=== PATIENT | male | born 1955 | race Caucasian/White ===

== ENCOUNTER 2017-10-10 06:53 | Day surgery (SDC) | payer OTHER ==
[~2017-10-10] VITALS: Ht 177.8 cm; Wt 77.9 kg
[2017-10-10] MEDS ORDERED: norco (07:33)
[2017-10-10] MEDS ORDERED: simvastatin (07:33)
[2017-10-10] MEDS ORDERED: soma (07:33)
[2017-10-10 07:35] VITALS: Ht 177.8 cm; Wt 77.9 kg
[2017-10-10 08:00] VITALS: BP 139/82; PULSE 62; RESP 18
[2017-10-10] MEDS ORDERED: MIDAZOLAM 1 MG/ML 2 ML INJ ONE ×3 (09:15)
[2017-10-10] MEDS ORDERED: FENTAnyl 50 MCG/ML VIAL ONE (09:15)
[2017-10-10 09:32] VITALS: BP 141/71; PULSE 62; RESP 20
--- NOTE | 2017-10-10 10:20 | OPPN ---
Date/Time of Note Date/Time of Note DATE: 10/10/17 TIME: 10:18 Proc Note GI Procedure Date 10/10/17 Indication: screening/surveillance Pre-procedure Diagnosis Screening colonoscopy Post-procedure Diagnosis Polypectomy done as described Procedure Performed: Colonoscopy Surgeon see signature line Foot Cutter none Anesthesia Type: moderate sedation Tourniquet Time none EBL none Transfusion required none Biopsy 1: None Polyp 1: Polyps sent for analysis as described Grafts/Implants none Tubes/Drains none Complication(s) none Procedure Description Procedure Date 10/10/17 Indication: screening/surveillance Pre-procedure Diagnosis Screening for colon cancer Post-procedure Diagnosis 2 polyps in the ascending colon. 1.4 cm polyp successfully removed by cold snare technique piecemeal polypectomy done polyp was flat. Goes on of the flat polyp in the same neighborhood successfully removed by jumbo biopsy forceps Moderate degree of diverticulosis both left and right side of the colon some of them largemouth Large 2-1/2 cm polyp in the rectum seen on the retroversion successfully removed by hot snare technique and the base was endoclipped Procedure Performed: Colonoscopy Surgeon see signature line Foot Cutter none Anesthesia Type: MAC Tourniquet Time none EBL none Transfusion required none Biopsy 1: None Polyp 1: Ascending colon cold snare Polyp 2: Ascending colon jumbo biopsy Polyp 3: Rectum hot snare Grafts/Implants none Tubes/Drains none Complication(s) none Disposition: PACU Procedure Description See dictated report HUBERT DUFFY MD Oct 10, 2017 10:20
--- NOTE | 2017-10-10 12:00 | GILP ---
DATE OF PROCEDURE: 10/10/2017 PROCEDURE: Colonoscopy with polypectomy and biopsy. INDICATION: A 62-year-old male undergoing this procedure for screening colonoscopy. The risk of th e procedure, related and unrelated complications, sedative risks, alternatives discussed and informe d consent was obtained. DESCRIPTION OF PROCEDURE: The patient was brought to the GI lab, sedated with Versed in incremental doses of 5 mg and fentanyl 100 mL. After optimal sedation a digital examination was done which was normal. Scope was passed with much ease into the rectum, advanced slowly all the way into the cecu m. Appendiceal orifice and IC valve identified. There was some stool in the cecum. There were 2 p olyps identified in the ascending colon. One was flat, 1.4 cm in diameter, successfully removed by cold snare technique piecemeal polypectomy was done, no tissue was left behind. There was another f lat polyp exactly opposite to this one, which was successfully removed by jumbo biopsy forceps. Jones t polyp was small 6 mm in diameter. The rest of the colon appeared normal except for multiple diver ticula at both left and right side of the colon, some of them were large mouth. The patient also romero d, on retroversion, a large polyp seen in the rectum. That polyp was successfully removed by hot sn are technique. The base was a bit white, though no muscularis propria was visible. As a preventive measure deployed endoclip ____ gently and closed the gap. The patient tolerated the procedure very well. IMPRESSION: 1. Large polyp 2.5 cm in diameter in the rectum, cauliflower in appearance with a pseudopedicle, bose ccessfully removed by hot snare technique and endoclip deployed. 2. Multiple diverticula, some of them large mouth both left and right side of the colon. 3. Two polyps in the ascending colon successfully removed, one by cold snare technique piecemeal po lypectomy done and the other with the jumbo biopsy forceps. PLAN: 1. Review the histopathology of the polyp. 2. The patient definitely needs a colonoscopy in 1 or 2 years unless the polyp histopathology warra nts further intervention. 3. High fiber diet. 4. Avoid red meat. The patient is to come to the office in 2 weeks. He was told about it. The patient was fully awake and we have given him the instruction in writing. Dictated By: HUBERT GUIDRY/WENDY Conf#: [id number] DID#: [id number] CC: YAN KEENAN MD;*[facility]*
== END 2017-10-10 11:14 | disposition home or self-care (01) ==
LOC: GIL 06:53
PROVIDERS: ATTEND Internal Medicine Gastroenterology
DX: Z12.11 Encounter for screening for malignant neoplasm of colon (principal); D12.4 Benign neoplasm of descending colon; D12.7 Benign neoplasm of rectosigmoid junction; K57.90 Diverticulosis of intestine, part unspecified, without perforation or abscess without bleeding; Z87.891 Personal history of nicotine dependence
CPT/HCPCS: 45380; 88305; J2250; J3010

== ENCOUNTER 2018-02-08 08:08 | Day surgery (SDC) | END 2018-02-08 14:45 | disposition home or self-care (01) ==